=== PATIENT | male | born 1960 | race Caucasian/White ===

== ENCOUNTER → 2020-12-14 | Outpatient (CLI) | payer OTHER ==
[~2020-12-14] MED LIST: ACTOS 30 MG TAB30 MG PO; DAILY VALUE1 EACH PO; GLUCOPHAGE500 MG PO
== END ==
LOC: SJCVCIMAG 07:18
PROVIDERS: ATTEND Internal Medicine
DX: R00.0 Tachycardia, unspecified (principal); R93.1 Abnormal findings on diagnostic imaging of heart and coronary circulation; R07.89 Other chest pain; I45.10 Unspecified right bundle-branch block; E11.9 Type 2 diabetes mellitus without complications; E78.5 Hyperlipidemia, unspecified; I10 Essential (primary) hypertension

== ENCOUNTER 2020-12-18 06:25 | Observation (INO) | payer BC, OTHER ==
[2020-12-18] VITALS (8 sets, daily range): BP systolic 76–144; BP diastolic 42–79
[~2020-12-18] VITALS: Ht 170.2 cm; Wt 66.7 kg
--- NOTE | ~2020-12-18 | D ---
[facility] [place] [address] DISCHARGE SUMMARY Name: MIRIAN NELSON Room #: 206-P [facility] M..#: [id number] Admission: 12/18/20 Attend Phys: Luis E Mcnair MD, Discharge: Date of : 60 Report #: [id number] THIS REPORT FOR: cc: Liz Yeh MD, Cora A. MD Lundgren,Luis E Joshi MD [facility] WITH [facility] ~ DOC #: [id number] cc: MD Luis E Pittman, [facility] The patient is a 59-year-old with hypertension, diabetes, tobacco dependency and recent chest pain. An outpatient stress study revealed provokable ischemia with a large ischemic burden. Given his symptoms despite aggressive pharmacologic therapy, he was admitted for further evaluation. HOSPITAL COURSE: The patient was admitted and underwent coronary angiography. The full details of this can be found under separate heading and dictation. In summary, left ventricular systolic function was found to be normal. The left main, LAD and circumflex exhibited mild plaquing. The right coronary exhibited severe proximal and mid vessel disease. The right coronary was dominant. He underwent successful angioplasty and stenting with a 3.0 x 26 mm Resolute proximally and then in sequence distal to this, a 2.75 x 38 mm Resolute. Both stents were postdilated to close to 3.2 mm with a noncompliant balloon. He was treated with aspirin, heparin, Effient and Integrilin in the periprocedural setting. He was ambulating with excellent groin hemostasis at the time of discharge. Discharge medicines were reconciled. Discharge medicines are aspirin 81 mg daily, Effient 10 mg daily, amlodipine 5 mg daily, atorvastatin 40 mg daily, Amaryl 2 mg twice a day, Zestril 40 mg daily, Glucophage 1000 mg twice daily, Maxzide 1 tablet a day and Farxiga 10 mg daily. DISCHARGE DIET: Low fat, low cholesterol prudent diabetic diet. Smoking cessation counseling was performed. Arrangements were made for outpatient cardiac rehabilitation. Discharge medicines were reconciled. Follow up with Dr. Yeh as directed. Follow up with myself in 1 month. DISCHARGE CONDITION: Stable and improved. Luis E Mcnair MD [facility]/[address] [address] DISCHARGE SUMMARY Name: MIRIAN NELSON Room #: 206-P [facility]#: [id number] Admission: 12/18/20 Attend Phys: Luis E Mcnair MD, Discharge: Date of : 60 Report #: [id number] By: 1145 1237 Luis E Mcnair MD, FACC /nt
[2020-12-18] MEDS ORDERED: ASA81BEC PO (07:17)
[2020-12-18] MEDS ORDERED: NORVASC5 MG PO (07:17)
[2020-12-18] MEDS ORDERED: LIPITOR10 MG PO ×2 (07:18)
[2020-12-18] MEDS ORDERED: AMARYL4 MG PO (07:19)
[2020-12-18] MEDS ORDERED: METFORMIN HCL500 M3 PO (07:19)
[2020-12-18] MEDS ORDERED: LISINOPRIL20 MG PO (07:19)
[2020-12-18] MEDS ORDERED: NITROSTAT0.4 M1 SUBLING (07:20)
[2020-12-18] MEDS ORDERED: LOVAZA1000 MG PO (07:21)
[2020-12-18] MEDS ORDERED: MAXZIDE-25 MG1 EACH PO (07:22)
--- NOTE | 2020-12-18 10:11 | CATHLAB ---
[facility] [place] [address] INVASIVE PROCEDURE REPORT Name: MIRIAN NELSON Room #: REG ISABELLA [place]la#: [id number] Admission: 12/18/20 Attend Phys: Luis E Mcnair MD, Discharge: Date of : 60 Report #: [id number] THIS REPORT FOR: cc: Liz Yeh MD, Cora A. MD Lundgren, Craig H. MD [facility] ~ APPROVED REPORT Study performed: 12/18/2020 07:38:24 Patient Details Patient Status: Out-Patient Room #: The patient is a 59 year-old male Event Personnel Luis E Mcnair Storage Solutions Architect, Lucretia Altamirano RTR Monitor, Tessa Ennis RTR, Rickie Kendrick Dexter RN immigration services officer Performed Art Access - R femoral artery* Left Heart Cath w/or w/o Coronaries [id number] [facility] [address] w/wo Plasty Single RCA 142048 Hemostasis w/ Mynx 55956 Initial Mod Sed Same Phys/QHP Gr5y 241828 77936 Mod Sed Same Phys/QHP Ea 925603 Procedure Narrative The patient was brought electively to the Cardiac Catheterization Laboratory and was prepped and draped in a sterile manner. The Right Groin^ was infiltrated with 1% Lidocaine subcutaneous anesthesia. A PINNACLE 6FR Sheath #[id number] sheath was inserted into the RFA^. Coronary angiography was performed using coronary diagnostic catheters. The right coronary system was accessed and visualized with a JR4 catheter. The left coronary system was accessed and visualized with a JL4 catheter. The left ventricle was accessed and visualized with a ANGLED PIGTAIL catheter. Left ventriculogram was performed in 30 degree projection. Closure device was deployed with a Fr 6/7 FR MYNX CHIEF MEDIA OFFICER. The patient tolerated the procedure well and there were no complications associated with the procedure. There was no hematoma. Intraoperative Conscious Sedation Sedation start time: 7:58 Case end Time: 9:18 Fentanyl 50 mcg Versed [address] [address] INVASIVE PROCEDURE REPORT Name: OMAR,MIRIAN E Room #: REG [facility]#: [id number] Admission: 12/18/20 Attend Phys: Luis E Mcnair, Discharge: Date of : 60 Report #: [id number] Fluoro Time: 9.03 minutes Dose: DAP 8451.50 cGycm2 1107 mGy Contrast Type and Amount: Omnipaque 245 ml Coronary Angiography The patient's coronary anatomy is right dominant. Diagnostic Cath Left Main Normal left main LAD Normal left anterior descending Diagonal 1 Normal, large bifurcating diagonal branch. Circumflex Large, normal nondominant right coronary OM1 Small to moderate sized OM1, mild ostial plaquing OM2 Moderate size second diagonal branch with scattered 20-30% mid vessel plaquing Right Coronary Large, dominant right coronary with very long variable 65-90% proximal and mid vessel stenoses R PDA Large posterior descending with 50-60% ostial stenosis RPLV Large posterior lateral branch with 50-60% ostial stenosis Left Ventriculography The left ventricle is normal in size with normal contractility. The left ventricular ejection fraction is estimated to be 60-65%. Left ventricular wall motion abnormalities are not present. There is no mitral insufficiency. Hemodynamics The aortic pressure is 189/66 mmHg with a mean of 120 mmHg. The left ventricular pressure is 164/3 mmHg with a mean of mmHg. The left ventricular end diastolic pressure is 23 mmHg. PCI Technique Lesion Anticoagulation was achieved with Heparin, Integrilin. Patient was preloaded with Effient. Percutaneous coronary intervention was performed on the proximal to mid right coronary artery. The lesion stenosis prior to intervention was 90% with REAGAN 3 flow. A LAUNCHER JR4 Guide Catheter was used to engage the right coronary ostium. A LUGE Interventional Guidewire was used to cross the lesion. BALLOON DILATION A Balloon catheter EUPHORA RX 2.5mm x 15mm was inserted and inflated up to 12.00atm for 30seconds. Additional Inflation: 14.00atm for [facility] [address] [place] [address] INVASIVE PROCEDURE REPORT Name: MIRIAN NELSON [id number] Admission: 12/18/20 Attend Phys: Luis E Mcnair, Discharge: Date of : 60 Report #: [id number] 31seconds. STENT DEPLOYMENT A drug-eluting stent RESOLUTE EDIE RX 2.75mm x 38mm was inserted and inflated up to 14.00atm for 31seconds. POST STENT DEPLOYMENT BALLOON DILATION A Balloon catheter NC TREK RX 3.0mm x 15mm was inserted and inflated up to 12atm for 31seconds. Additional Inflation: 12atm for 31seconds. Additional Inflation: 16atm for 31seconds. Additional Inflation: 18 Conrad for 31 seconds. Final angiography reveals 0 % stenosis with REAGAN 3 flow. PCI Technique Lesion 2 Percutaneous Coronary Intervention was performed on the proximal right coronary artery. A LAUNCHER JR4 Guide Catheter was used to engage the ostium. A LUGE Interventional Guidewire was used to cross the lesion. Balloon Dilation A Balloon catheter EUPHORA RX 2.5mm x 15mm was inserted and inflated up to 10atm for 32seconds. Stent Deployment A drug-eluting stent RESOLUTE EDIE RX 3.0mm x 26mm was inserted and inflated up to 16atm for 30seconds. Post Stent Deployment Balloon Dilation A Balloon catheter NC TREK RX 3.0mm X 15mm was inserted and inflated up to 20atm for 30seconds. Additional Inflation: 22atm for 24seconds. Final angiography reveals 0 % stenosis with REAGAN 3 flow. Conclusion 1. Normal global and regional left ventricular systolic function. EF 65%. 2. Normal left main 3. Normal LAD 4. Mild plaquing in nondominant circumflex 5. Severe variable long proximal to mid right coronary artery stenoses treated in sequence with a 3.0 x 26 mm Resolute followed by 2.75 x 38 mm Resolute stents 6. Both stents were postdilated to over 3 mm with a noncompliant [facility] [address] [place] [address] INVASIVE PROCEDURE REPORT Name: MIRIAN NELSON Room #: REG CL Yair.#: [id number] Admission: 12/18/20 Attend Phys: Luis E Mcnair, Discharge: Date of : 60 Report #: [id number] balloon. Moderate 50-60% stenoses at the origin of the posterolateral and posterior descending branches, these will be followed closely. Recommendations Cardiac Rehabilitation Referral Aggressive Medical Therapy <ELECTRONICALLY SIGNED> By: Luis E Mcnair MD, FAC 12/18/20 1011 1011 1011 Luis E Mcnair MD, FAC /INF
--- NOTE | 2020-12-18 11:00 | NUR ---
pt admitted to the unit post cath and stent placement pt is stable iv in right ac, right groin site cdi, no hematoma noted at this time bed rest for 3 hours, pt denies pain at this time and states there is mild pressure to the right groin site, vs stable and wnl
--- NOTE | 2020-12-18 13:09 | EKG ---
[address] [address] ELECTROCARDIOGRAM REPORT Name: OMARMIRIAN Blackwood Room #: 206-P [facility]#: [id number] Admission: 12/18/20 Attend Phys: Luis E Mcnair MD, Discharge: Date of : 60 Report #: [id number] [facility] Test Date: 2020-12-18 Test Time: 09:51:22 Pat Name: MIRIAN NELSON Department: Room: [facility] Gender: M Affiliate Manager: SAMMIE : 1960 Requested By: Luis E Mcnair Order Number: [id number] MD: Garry Banegas Measurements Intervals [place] Rate: 56 P: 63 RI: 201 QRS: 41 QRSD: 96 T: 31 QT: 414 QTc: 400 Interpretive Statements Sinus rhythm Early repolarization No ischemic changes No previous ECG available for comparison Electronically Signed On 12-18-2020 13:08:50 CDT by Garry Banegas [email or web address] <ELECTRONICALLY SIGNED> By: Garry Banegas MD 12/18/20 1308 0951 0951 MD ANAHY Palacio
[2020-12-18] MEDS ORDERED: ASPIRIN325 PO (15:03)
[2020-12-18] MEDS ORDERED: EFFIENT10 MG PO (15:03)
[2020-12-18] MEDS ORDERED: LIPITOR40 MG PO (15:03)
--- NOTE | 2020-12-18 16:45 | NUR ---
1625 groin site check and hematoma noted to area, no bleeding at this time. pressure held at this time and dr notified, ordered 500ml bolus along with atropine 0.5mg. pt vasovagal and dyaphoretic at this time hypotensive 75/42, hr manulaly 36 bpm, rhythm noted bradycardia with possible junctional rhythms. pt states that he feels mild nausea and some pain due to pressure being held to groin site, 1645 18g started in right forearm 500ml bolus gave, bp 83/46, hr 46, pt pressures and hr is stabalizing pt has remained a&o during this event, at bedside and has no questions at this time, pt to remain on bed rest until 2244. ekg being complete at this time, will cont to monitor pt, call light in reach.
[2020-12-18 16:49] LABS: HEMATOCRIT 39.2 % (42.0-52.0); HEMOGLOBIN 12.7 gm/dL (14.0-18.0); MCH 26.2 pg (26.0-34.0); MCHC 32.4 g/dL (28.0-37.0); MCV 80.7 fL (80.0-100.0); RBC 4.86 mil/uL (4.50-6.00); RDW 14.8 % (10.5-14.5); WBC 11.4 thou/uL (4.0-11.0)
--- NOTE | 2020-12-18 17:09 | NUR ---
PT RESTING IN BED AT THIS TIME, HEMATOMA IS SMALLER AND AREA IS SOFTER IN DIAMETER, PT COLOR IS PINK AND VS STABLE BP 127/69, 63 HR, EKG COMPLETE NO SIGNIFICANT CHANGES NOTED FROM PRIOR TO INCIDENT. AT BEDSIDE, NO QUESTIONS OR CONCERNS NOTED AT THIS TIME, PT IS LYING IN BED AND EDUCATED TO KEEP LEG STILL AND HOB IS AT 20 DEGREES.
[2020-12-19 04:00] VITALS: BP 124/65
[2020-12-19 05:06] LABS: HEMATOCRIT 38.5 % (42.0-52.0); HEMOGLOBIN 12.4 gm/dL (14.0-18.0); MCH 26.1 pg (26.0-34.0); MCHC 32.3 g/dL (28.0-37.0); MCV 80.9 fL (80.0-100.0); RBC 4.76 mil/uL (4.50-6.00); WBC 12.7 thou/uL (4.0-11.0)
[2020-12-19 06:08] LABS: ALBUMIN 3.5 g/dL (3.4-5.0); ANION GAP 8 mmol/L (7-16); BUN 12 mg/dL (7-18); CALCIUM 8.9 mg/dL (8.5-10.1); CHLORIDE 104 mmol/L (98-107); CO2 27 mmol/L (21-32); CREATININE 1.2 mg/dL (0.7-1.3); GLUCOSE 139 mg/dL (74-106); POTASSIUM 3.9 mmol/L (3.5-5.1); SGOT 17 U/L (15-37); SGPT 34 U/L (16-63); SODIUM 139 mmol/L (136-145); TOTAL BILIRUBIN 0.3 mg/dL (0.2-1.0); TOTAL PROTEIN 7.1 g/dL (6.4-8.2); TROPONIN-I <0.06 ng/mL (<0.06)
[2020-12-19 06:22] LABS: CHOLESTEROL 71 mg/dL (<200); HDL CHOLESTEROL 21 mg/dL (>40); LDL CHOLESTEROL 40 mg/dL (<100); TC:HDL 3.4 Ratio (Not establshd); TRIGLYCERIDE 50 mg/dL (<150); VLDL 10 mg/dL (<40)
--- NOTE | 2020-12-19 07:11 | NUR ---
ASSUME CARE 1900. PT/VITALS STABLE. TENDERNESS TO RIGHT GROIN SITE. GOOD ENDURANCE TO ACTIVITY. UP AD [place]. ASSESSMENT CHARTED. PROGRESSING WELL WITH POC. NO DISTRESS NOTED THROUGH THE SHFT. GROIN SITE CDI WITH NO BLEEDING/BRUISING/HEMATOMA NOTED. 2+ PULSE NOTED ON AFFECTED EXTREMITY. PLAN IS POSSIBLE DISCHARGE TODAY. WILL CONTINUE TO MONITOR AND FOLLOW WITH POC
[2020-12-19 07:35] VITALS: BP 131/69
--- NOTE | 2020-12-19 08:44 | EKG ---
[address] [place] [address] ELECTROCARDIOGRAM REPORT Name: MIRIAN NELSON Room #: 206-[facility]#: [id number] Admission: 12/18/20 Attend Phys: Luis E Mcnair MD, Discharge: Date of : 60 Report #: [id number] [facility] Test Date: 2020-12-18 Test Time: 16:53:59 Pat Name: MIRIAN NELSON Department: Room: 206 P Gender: M Team Driver: FSCHWALBE : 1960 Requested By: Luis E Mcnair Order Number: [id number] MD: George Meyers Measurements Intervals [place] Rate: 48 P: 15 WY: 214 QRS: 38 QRSD: 97 T: 18 QT: 447 QTc: 400 Interpretive Statements Sinus bradycardia Borderline prolonged [place] interval ST elevation, considerer early anterior injury Compared to ECG 12/18/2020 09:51:22 ST (T wave) deviation now present Sinus rhythm no longer present Early repolarization no longer present Possible ischemia no longer present Electronically Signed On 12-19-2020 8:43:55 CDT by George Meyers [email or web address] <ELECTRONICALLY SIGNED> By: George Meyers MD, [facility] 12/19/20 0843 1653 1653 George Meyers MD, [facility] /EPI
--- NOTE | 2020-12-19 08:44 | EKG ---
[address] [place] [employer] [place] [address] ELECTROCARDIOGRAM REPORT Name: MIRIAN NELSON Room #: 206-[facility]#: [id number] Admission: 12/18/20 Attend Phys: Luis E Mcnair MD, Discharge: Date of : 60 Report #: [id number] [facility] Test Date: 2020-12-19 Test Time: 07:07:26 Pat Name: MIRIAN NELSON Department: Room: 206 P Gender: M Marine Architect: SAMMIE : 1960 Requested By: Luis E Mcnair Order Number: [id number] MD: George Meyers Measurements Intervals [place] Rate: 55 P: -22 NV: 185 QRS: 19 QRSD: 106 T: 30 QT: 403 QTc: 386 Interpretive Statements Sinus rhythm Low voltage, precordial leads Anteroseptal infarct, old Compared to ECG 12/18/2020 16:53:59 Low QRS voltage now present Sinus bradycardia no longer present ST (T wave) deviation no longer present Myocardial infarct finding still present Electronically Signed On 12-19-2020 8:44:15 CDT by George Meyers [email or web address] <ELECTRONICALLY SIGNED> By: George Meyers MD, [facility] 12/19/20 0844 0707 0707 George Meyers MD, [facility] /EPI
[2020-12-19 09:59] VITALS: BP 131/79
== END 2020-12-19 11:53 | disposition home or self-care (01) ==
LOC: CATH 06:25 → 2N 11:05
PROVIDERS: ADMIT Internal Medicine; ATTEND Internal Medicine
DX: I25.10 Atherosclerotic heart disease of native coronary artery without angina pectoris (principal); I10 Essential (primary) hypertension; E11.9 Type 2 diabetes mellitus without complications; E78.5 Hyperlipidemia, unspecified; F17.210 Nicotine dependence, cigarettes, uncomplicated; Z79.82 Long term (current) use of aspirin; Z79.899 Other long term (current) drug therapy